=== PATIENT | male | born 1955 | race Caucasian/White ===

== ENCOUNTER 2017-05-31 16:43 | Emergency (ER) | payer MEDICAID ==
[~2017-05-31] VITALS: Ht 162.6 cm; Wt 61.0 kg
[2017-05-31] MEDS ORDERED: ATEN-42 PO (16:47)
[2017-05-31] MEDS ORDERED: ASPI-1159 PO (16:47)
[2017-05-31] MEDS ORDERED: ONDANSETRON HCL 4MG/2ML VIAL IV STA (18:04)
[2017-05-31 18:15] VITALS: BP 146/84
[2017-05-31] MEDS ORDERED: NITROGLYCERIN OINT 1GM/INCH UDPKT TD ONE (18:15)
[2017-05-31] MEDS ORDERED: ASPIRIN 81MG TABLET PO ONE (18:15)
[2017-05-31 18:35] LABS: HEMATOCRIT. 43.4 % (42.0-52.0); HEMOGLOBIN. 15.3 g/dL (14.0-18.0); MEAN CORPUSCULAR HEMOGLOBIN 33.4 pg (28.0-32.0); MEAN CORPUSCULAR VOLUME 94.9 fL (80.0-94.0); MEAN PLATELET VOLUME 8.4 fl (7.4-10.4); PLATELET 180 x1000/uL (130-400); RED BLOOD CELL COUNT 4.57 mill/uL (4.7-6.1); RED CELL DISTRIBUTION WIDTH 13.9 % (11.6-14.6)
[2017-05-31 18:45] LABS: CARBON DIOXIDE 25 mEq/L (21-32); CHLORIDE 102 mEq/L (98-107); ETHANOL BLOOD 294 mg/dL; INR 1.1; TROPONIN I 0.04 ng/mL (0.00-0.04)
[2017-05-31 18:54] LABS: PLATELET ESTIMATE NORMAL
== END 2017-05-31 19:05 | disposition left against medical advice (07) ==
LOC: ER 16:51 → CANBEDREQ 20:40
DX: R07.89 Other chest pain (principal); I10 Essential (primary) hypertension; F10.129 Alcohol abuse with intoxication, unspecified; I25.2 Old myocardial infarction; E87.6 Hypokalemia; E87.2 Acidosis; R74.0 Nonspecific elevation of levels of transaminase and lactic acid dehydrogenase [LDH]; D64.9 Anemia, unspecified; Y90.8 Blood alcohol level of 240 mg/100 ml or more; Z79.82 Long term (current) use of aspirin
CPT/HCPCS: 36415; 80053; 83605; 83690; 83880; 84484; 85025; 85610; 93005; 99285; G0482; Z7610; J2405